=== PATIENT | male | born 1955 | race Caucasian/White ===

== ENCOUNTER → 2020-06-10 18:14 | Outpatient (CLI) | payer OTHER, SELFPAY ==
[2020-06-10 18:47] LABS: Alanine Aminotransferase 48 U/L (12-78); Albumin Level 4.5 g/dl (3.5-5.0); Albumin/Globulin Ratio 2.1 (1.1-1.8); Alkaline Phosphatase 55 U/L (38-126); Anion Gap 15.4 mEq/L (5-15); Aspartate Amino Transferase 31 U/L (17-59); Bilirubin,Total 0.3 mg/dl (0.2-1.3); Blood Urea Nitrogen 19 mg/dl (9-20); Calcium 9.9 mg/dl (8.4-10.2); Carbon Dioxide 25 mmol/L (22.0-30.0); Chloride 102 mmol/L (98-107); Estimated Glomerular Filt Rate 136 ml/min (>60); GFR (African American) 164 ML/MIN (>60); Globulin 2.1 g/dL (1.3-3.2); Glucose 175 mg/dl (74-100); Potassium 4.4 mmoL/L (3.5-5.1); Sodium 138 mmol/L (136-145); Total Protein,Serum 6.6 g/dl (6.3-8.2)
[2020-06-10 18:55] LABS: Hemoglobin A1C 7.8 % (4.0-6.0)
== END ==
PROVIDERS: Visit Provider Family Medicine
DX: E11.9 Type 2 diabetes mellitus without complications (principal); Z79.4 Long term (current) use of insulin
CPT/HCPCS: 80053; 83036

== ENCOUNTER → 2020-11-10 13:51 | Outpatient (CLI) | payer OTHER, SELFPAY ==
[2020-11-10 14:29] LABS: Alanine Aminotransferase 51 U/L (12-78); Albumin Level 4.4 g/dl (3.5-5.0); Albumin/Globulin Ratio 1.8 (1.1-1.8); Alkaline Phosphatase 53 U/L (38-126); Anion Gap 14.3 mEq/L (5-15); Aspartate Amino Transferase 43 U/L (17-59); Bilirubin,Total 0.4 mg/dl (0.2-1.3); Blood Urea Nitrogen 17 mg/dl (9-20); Calcium 9.6 mg/dl (8.4-10.2); Carbon Dioxide 23 mmol/L (22.0-30.0); Chloride 103 mmol/L (98-107); Chol/HDL Ratio 4.6 (1-3.5); Cholesterol 225 mg/dl (140-200); Estimated Glomerular Filt Rate 167 ml/min (>60); GFR (African American) 203 ML/MIN (>60); Globulin 2.5 g/dL (1.3-3.2); Glucose 163 mg/dl (74-100); HDL Cholesterol 49 mg/dl (40-60); Potassium 4.3 mmoL/L (3.5-5.1); Sodium 136 mmol/L (136-145); Total Protein,Serum 6.9 g/dl (6.3-8.2); Triglycerides 184 mg/dl (30-150); VLDL Cholesterol 37 mg/dL (0-40)
[2020-11-10 14:42] LABS: Creatinine,Urine Random 151 mg/dL (Not Estab.)
[2020-11-10 14:49] LABS: Basophils % 0.8 % (0.1-2.0); Eosinophils # 0.2 K/mm3 (0.0-0.4); Hematocrit 42.4 % (42.0-52.0); Lymphocytes # 1.1 K/mm3 (0.7-4.5); Lymphocytes % 20.1 % (10-50); Mean Corpuscular Hemoglobin 29.9 pg (27.0-31.2); Mean Corpuscular Volume 90.6 fl (80-94); Mean Platelet Volume 9.3 fl (7.4-10.4); Monocytes # 0.4 K/mm3 (0.1-1.0); Neutrophils # 3.7 K/mm3 (1.8-7.8); Neutrophils % 68.1 % (37.0-80.0); Platelet Count 162 K/mm3 (142-424); Red Blood Count 4.68 M/mm3 (4.60-6.20); Red Cell Distribution Width 14.7 % (11.5-17.5); T4 (Thyroxine) 9.3 ug/dl (5.53-11.0); White Blood Count 5.4 K/mm3 (4.8-10.8)
[2020-11-10 14:58] LABS: Microalbumin/Creatinine Ratio 22.5
[2020-11-10 15:02] LABS: Prostate Specific Ag Screen 0.4 ng/ml (0.0-4.0); Thyroid Stimulating Hormone 2.01 uIU/mL (0.465-4.68)
[2020-11-10 17:36] LABS: Hemoglobin A1C 8.6 % (4.0-6.0)
== END ==
PROVIDERS: Visit Provider Family Medicine
DX: E11.9 Type 2 diabetes mellitus without complications (principal); Z12.5 Encounter for screening for malignant neoplasm of prostate; Z79.4 Long term (current) use of insulin
CPT/HCPCS: 80053; 80061; 82043; 82570; 83036; 84436; 84443; 85025; G0103

== ENCOUNTER → 2020-11-20 09:34 | Outpatient (CLI) | payer OTHER, SELFPAY ==
--- NOTE | 2020-11-20 09:39 | CA_ITS ---
APPROVED REPORT Invoice Control Clerk: MERVIN Laterality: Bilateral Study Quality: Adequate, Due to body habitus. Indications: hx CVA rt sided impairment, DM, smoker, HTN, HLD, CAD-9 stents Risk Factors Hypertension: TIA/CVA History Hyperlipidemia Diabetes Smoking Doppler Spectral Velocity Analysis ECA (R) 305.80/42.80 cm/s ECA (L) 182.20/38.80 cm/s dICA (R) 128.10/28.20 cm/s dICA (L) 90.90/21.40 cm/s James (R) 137.10/37.20 cm/s James (L) 82.30/22.50 cm/s pICA (R) 134.50/44.80 cm/s pICA (L) 165.30/29.50 cm/s dCCA (R) 101.00/30.70 cm/s dCCA (L) 90.90/21.40 cm/s pCCA (R) 64.30/15.00 cm/s pCCA (L) 100.50/23.50 cm/s Vert (R) 61.00/0.00 cm/s Vert (L) 45.40/0.00 cm/s ICA/CCA 1.36 ICA/CCA 1.82 Findings Duplex evaluation demonstrates antegrade flow of the bilateral Vertebral Arteries. Duplex evaluation demonstrates moderate stenosis of the proximal right Internal Carotid Artery in the range of 20-49% <140 cm/sec. Duplex evaluation demonstrates moderate stenosis of the proximal left Internal Carotid Artery in the range of 50-69% =140 cm/sec. Conclusion Duplex evaluation demonstrates antegrade flow of the bilateral Vertebral Arteries. Duplex evaluation demonstrates moderate stenosis of the proximal right Internal Carotid Artery in the range of 20-49% <140 cm/sec. Duplex evaluation demonstrates moderate stenosis of the proximal left Internal Carotid Artery in the range of 50-69% =140 cm/sec. Electronically signed by : Prince Wilson MD 11/20/2020 15:56:48
== END ==
PROVIDERS: PCP Family Medicine; Visit Provider Family Medicine
DX: I73.9 Peripheral vascular disease, unspecified (principal); Z86.73 Personal history of transient ischemic attack (TIA), and cerebral infarction without residual deficits
CPT/HCPCS: 93880

== ENCOUNTER → 2021-02-05 14:05 | Outpatient (CLI) | payer OTHER, SELFPAY ==
[2021-02-05 14:25] LABS: Hemoglobin A1C 8.6 % (4.0-6.0)
[2021-02-05 14:29] LABS: Alanine Aminotransferase 44 U/L (12-78); Albumin Level 4.3 g/dl (3.5-5.0); Albumin/Globulin Ratio 2.3 (1.1-1.8); Alkaline Phosphatase 50 U/L (38-126); Aspartate Amino Transferase 33 U/L (17-59); Bilirubin,Total 0.6 mg/dl (0.2-1.3); Blood Urea Nitrogen 14 mg/dl (9-20); Calcium 8.9 mg/dl (8.4-10.2); Carbon Dioxide 25 mmol/L (22.0-30.0); Chloride 102 mmol/L (98-107); Chol/HDL Ratio 4.2 (1-3.5); Cholesterol 155 mg/dl (140-200); Estimated Glomerular Filt Rate 136 ml/min (>60); GFR (African American) 164 ML/MIN (>60); Globulin 1.9 g/dL (1.3-3.2); Glucose 178 mg/dl (74-100); HDL Cholesterol 37 mg/dl (40-60); Sodium 137 mmol/L (136-145); Total Protein,Serum 6.2 g/dl (6.3-8.2); Triglycerides 96 mg/dl (30-150); VLDL Cholesterol 19 mg/dL (0-40)
== END ==
PROVIDERS: Visit Provider Family Medicine
DX: E11.9 Type 2 diabetes mellitus without complications (principal); I10 Essential (primary) hypertension; Z79.4 Long term (current) use of insulin
CPT/HCPCS: 80053; 80061; 83036

== ENCOUNTER → 2021-04-02 14:03 | Outpatient (CLI) | payer OTHER, SELFPAY ==
[2021-04-02 14:11] LABS: Chloride 105 mmol/L (98-107); Potassium 5.2 mmoL/L (3.5-5.1); Sodium 139 mmol/L (136-145)
[2021-04-02 14:14] LABS: Alanine Aminotransferase 55 U/L (12-78); Albumin Level 4.3 g/dl (3.5-5.0); Alkaline Phosphatase 64 U/L (38-126); Anion Gap 17.2 mEq/L (5-15); Aspartate Amino Transferase 46 U/L (17-59); Bilirubin,Total 0.5 mg/dl (0.2-1.3); Blood Urea Nitrogen 22 mg/dl (9-20); Calcium 9.2 mg/dl (8.4-10.2); Carbon Dioxide 22 mmol/L (22.0-30.0); Estimated Glomerular Filt Rate 97 ml/min (>60); GFR (African American) 118 ML/MIN (>60); Globulin 2.1 g/dL (1.3-3.2); Glucose 336 mg/dl (74-100); Total Protein,Serum 6.4 g/dl (6.3-8.2)
[2021-04-02 14:49] LABS: Hemoglobin A1C 8.9 % (4.0-6.0)
== END ==
PROVIDERS: Visit Provider Family Medicine
DX: E11.51 Type 2 diabetes mellitus with diabetic peripheral angiopathy without gangrene (principal); Z79.4 Long term (current) use of insulin
CPT/HCPCS: 80053; 83036

== ENCOUNTER → 2021-05-12 18:54 | Outpatient (CLI) | payer OTHER, SELFPAY ==
[2021-05-12 20:06] LABS: Alanine Aminotransferase 35 U/L (12-78); Albumin/Globulin Ratio 1.9 (1.1-1.8); Alkaline Phosphatase 53 U/L (38-126); Anion Gap 16.5 mEq/L (5-15); Aspartate Amino Transferase 33 U/L (17-59); Bilirubin,Total 0.3 mg/dl (0.2-1.3); Blood Urea Nitrogen 15 mg/dl (9-20); Calcium 9.1 mg/dl (8.4-10.2); Carbon Dioxide 26 mmol/L (22.0-30.0); Chloride 100 mmol/L (98-107); Estimated Glomerular Filt Rate 167 ml/min (>60); GFR (African American) 202 ML/MIN (>60); Globulin 2.1 g/dL (1.3-3.2); Glucose 178 mg/dl (74-100); Potassium 4.5 mmoL/L (3.5-5.1); Sodium 138 mmol/L (136-145); Total Protein,Serum 6.1 g/dl (6.3-8.2)
[2021-05-12 21:06] LABS: Hemoglobin A1C 8.7 % (4.0-6.0)
== END ==
PROVIDERS: Visit Provider Family Medicine
DX: E11.51 Type 2 diabetes mellitus with diabetic peripheral angiopathy without gangrene (principal); Z79.4 Long term (current) use of insulin
CPT/HCPCS: 80053; 83036

== ENCOUNTER → 2021-07-10 15:02 | Outpatient (CLI) | payer MEDICARE, SELFPAY ==
[2021-07-10 15:46] LABS: Hemoglobin A1C 7.1 % (4.0-6.0)
== END ==
PROVIDERS: Visit Provider Family Medicine
DX: E11.9 Type 2 diabetes mellitus without complications (principal); Z79.84 Long term (current) use of oral hypoglycemic drugs
CPT/HCPCS: 83036

== ENCOUNTER → 2021-10-15 13:36 | Outpatient (CLI) | payer MEDICARE, SELFPAY ==
--- NOTE | 2021-10-15 13:36 | CT_ITS ---
FINAL REPORT TECHNIQUE: Thin section axial CT with IV contrast supplemented with multiplanar reconstruction under CT angiogram protocol. This study was performed with techniques to keep radiation doses as low as reasonably achievable (ALARA). Individualized dose reduction techniques using automated exposure control or adjustment of mA and/or kV according to the patient''s size were employed. NASCET criteria was utilized during interpretation. CLINICAL HISTORY: carotid stenosis weak rt side , leg weakness , hx stroke 2 years ago FINDINGS: There is motion artifact at the level of the base of the brain which decreases sensitivity of the exam. Aortic arch: Arch shows no significant narrowing. Great vessel origins are widely patent. Right carotid: There is mild plaque at the common carotid artery without significant stenosis. There is plaque at the right carotid bulb with less than 50% stenosis. There is mild stenosis at the distal right ICA. Left carotid: There is mild plaque at the left common carotid artery without significant stenosis. There is large plaque at the left carotid bulb with 60-70% stenosis. There is approximately 50-60% stenosis of the cavernous distal ICA. Vertebral: Right vertebral artery is dominant. Vertebral arteries are patent bilaterally. Note is made of a right thyroid nodule measuring 11 mm. IMPRESSION: 1. Mild stenosis at the right carotid bulb. 2. 60-70% stenosis at the left carotid bulb with 50-60% stenosis of the cavernous distal ICA. 3. Right thyroid nodule measuring 11 mm. Thyroid ultrasound is recommended for further evaluation. Reviewed, Interpreted and Dictated by Fantasma Wadsworth III, MD Transcribed by Delores Stoner Authenticated by Fantasma Wadsworth III, MD on 10/15/2021 04:16:22 PM [facility]
[2021-10-15 14:23] LABS: Blood Urea Nitrogen 17 mg/dl (9-20); Estimated Glomerular Filt Rate 135 ml/min (>60); GFR (African American) 164 ML/MIN (>60)
== END ==
PROVIDERS: PCP Family Medicine; Visit Provider Family Medicine
DX: I65.23 Occlusion and stenosis of bilateral carotid arteries (principal)
CPT/HCPCS: 36415; 70498; 82565; 84520; Q9967

== ENCOUNTER → 2022-04-06 18:23 | Outpatient (CLI) | payer MEDICARE, SELFPAY ==
[2022-04-06 15:40] LABS: Basophils # 0.1 K/mm3 (0-0.2); Basophils % 1.2 % (0.1-2.0); Eosinophils # 0.3 K/mm3 (0.0-0.4); Eosinophils % 5.2 % (0.1-12.0); Hematocrit 44.8 % (42.0-52.0); Lymphocytes % 16.9 % (10-50); Mean Corpuscular HGB Conc 31.1 g/dL (31.8-35.4); Mean Corpuscular Hemoglobin 28.9 pg (27.0-31.2); Mean Corpuscular Volume 92.9 fl (80-94); Mean Platelet Volume 10.1 fl (7.4-10.4); Monocytes # 0.4 K/mm3 (0.1-1.0); Monocytes % 6.9 % (1.7-9.3); Neutrophils # 4.1 K/mm3 (1.8-7.8); Neutrophils % 69.7 % (37.0-80.0); Platelet Count 168 K/mm3 (142-424); Red Blood Count 4.82 M/mm3 (4.60-6.20); White Blood Count 5.9 K/mm3 (4.8-10.8)
[2022-04-06 15:58] LABS: Chloride 104 mmol/L (98-107); Sodium 135 mmol/L (136-145)
[2022-04-06 16:00] LABS: Potassium 4.9 mmoL/L (3.5-5.1)
[2022-04-06 16:01] LABS: Alanine Aminotransferase 42 U/L (12-78); Alkaline Phosphatase 62 U/L (38-126); Anion Gap 11.9 mEq/L (5-15); Aspartate Amino Transferase 37 U/L (17-59); Bilirubin,Total 0.2 mg/dl (0.2-1.3); Blood Urea Nitrogen 19 mg/dl (9-20); Carbon Dioxide 24 mmol/L (22.0-30.0); Estimated Glomerular Filt Rate 167 ml/min (>60); GFR (African American) 202 ML/MIN (>60)
[2022-04-06 16:03] LABS: Albumin Level 4.1 g/dl (3.5-5.0); Albumin/Globulin Ratio 2.2 (1.1-1.8); Calcium 9.6 mg/dl (8.4-10.2); Globulin 1.9 g/dL (1.3-3.2); Glucose 271 mg/dl (74-100)
[2022-04-06 16:09] LABS: 25-OH Vitamin D, Total 56.1 ng/mL (30-100)
[2022-04-06 16:33] LABS: Thyroid Stimulating Hormone 2.19 uIU/mL (0.465-4.68)
[2022-04-06 16:58] LABS: Hemoglobin A1C 10.4 % (4.0-6.0)
== END ==
PROVIDERS: PCP Family Medicine; Visit Provider Family Medicine
DX: E11.9 Type 2 diabetes mellitus without complications (principal); E55.9 Vitamin D deficiency, unspecified; I65.29 Occlusion and stenosis of unspecified carotid artery; Z79.4 Long term (current) use of insulin
CPT/HCPCS: 80053; 82306; 83036; 84443; 85025

== ENCOUNTER → 2022-07-06 10:43 | Outpatient (CLI) | payer MEDICARE, SELFPAY ==
[2022-07-06 17:36] LABS: Chol/HDL Ratio 3.1 (1-3.5); Cholesterol 126 mg/dl (140-200); HDL Cholesterol 41 mg/dl (40-60); Triglycerides 88 mg/dl (30-150); VLDL Cholesterol 18 mg/dL (0-40)
[2022-07-06 17:47] LABS: Direct LDL Cholesterol 67.26 mg/dL (100-129)
[2022-07-06 18:27] LABS: Hemoglobin A1C 9.1 % (4.0-6.0)
== END ==
PROVIDERS: PCP Family Medicine; Visit Provider Family Medicine
DX: E11.51 Type 2 diabetes mellitus with diabetic peripheral angiopathy without gangrene (principal); Z79.4 Long term (current) use of insulin
CPT/HCPCS: 80061; 83036

== ENCOUNTER → 2023-07-04 08:21 | Outpatient (CLI) | payer MEDICARE, SELFPAY ==
[2023-07-04 19:25] LABS: Basophils % 0.5 % (0.1-2.0); Eosinophils # 0.2 K/mm3 (0.0-0.4); Eosinophils % 3.1 % (0.1-12.0); Hematocrit 40.9 % (42.0-52.0); Hemoglobin 13.9 g/dL (14.1-18.0); Lymphocytes % 17.8 % (10-50); Mean Corpuscular HGB Conc 33.9 g/dL (31.8-35.4); Mean Corpuscular Hemoglobin 29.8 pg (27.0-31.2); Mean Corpuscular Volume 87.7 fl (80-94); Mean Platelet Volume 10.2 fl (7.4-10.4); Monocytes # 0.4 K/mm3 (0.1-1.0); Monocytes % 6.5 % (1.7-9.3); Neutrophils # 4.1 K/mm3 (1.8-7.8); Neutrophils % 72.2 % (37.0-80.0); Platelet Count 156 K/mm3 (142-424); Red Blood Count 4.67 M/mm3 (4.60-6.20); Red Cell Distribution Width 14.7 % (11.5-17.5); White Blood Count 5.7 K/mm3 (4.8-10.8)
[2023-07-04 20:31] LABS: Alanine Aminotransferase 31 U/L (12-78); Alkaline Phosphatase 53 U/L (38-126); Anion Gap 13.6 mEq/L (5-15); Aspartate Amino Transferase 31 U/L (17-59); Bilirubin,Total 0.3 mg/dl (0.2-1.3); Blood Urea Nitrogen 14 mg/dl (9-20); Carbon Dioxide 24 mmol/L (22.0-30.0); Chloride 101 mmol/L (98-107); Chol/HDL Ratio 3.4 (1-3.5); Cholesterol 113 mg/dl (140-200); Estimated Glomerular Filt Rate 134 ml/min (>60); GFR (African American) 163 ML/MIN (>60); Glucose 220 mg/dl (74-100); HDL Cholesterol 33 mg/dl (40-60); Potassium 4.6 mmoL/L (3.5-5.1); Sodium 134 mmol/L (136-145); Triglycerides 86 mg/dl (30-150); VLDL Cholesterol 17 mg/dL (0-40)
[2023-07-04 20:41] LABS: Direct LDL Cholesterol 70.28 mg/dL (100-129)
[2023-07-04 21:01] LABS: Hemoglobin A1C 10.4 % (4.0-6.0)
[2023-07-04 21:12] LABS: Prostate Specific Ag Screen 0.4 ng/ml (0.0-4.0); Thyroid Stimulating Hormone 1.69 uIU/mL (0.465-4.68)
== END ==
PROVIDERS: PCP Family Medicine; Visit Provider Family Medicine
DX: Z86.73 Personal history of transient ischemic attack (TIA), and cerebral infarction without residual deficits; E11.51 Type 2 diabetes mellitus with diabetic peripheral angiopathy without gangrene; Z12.5 Encounter for screening for malignant neoplasm of prostate; I10 Essential (primary) hypertension; I65.23 Occlusion and stenosis of bilateral carotid arteries; Z79.4 Long term (current) use of insulin
CPT/HCPCS: 80053; 80061; 83036; 84443; 85025; G0103

== ENCOUNTER → 2023-08-24 23:25 | Outpatient (CLI) | payer MEDICARE, SELFPAY ==
[2023-08-24 18:56] LABS: Alanine Aminotransferase 31 U/L (12-78); Alkaline Phosphatase 48 U/L (38-126); Anion Gap 11.5 mEq/L (5-15); Aspartate Amino Transferase 32 U/L (17-59); Bilirubin,Total 0.3 mg/dl (0.2-1.3); Blood Urea Nitrogen 14 mg/dl (9-20); Calcium 8.8 mg/dl (8.4-10.2); Carbon Dioxide 24 mmol/L (22.0-30.0); Chloride 103 mmol/L (98-107); Estimated Glomerular Filt Rate 134 ml/min (>60); GFR (African American) 163 ML/MIN (>60); Glucose 173 mg/dl (74-100); Potassium 4.5 mmoL/L (3.5-5.1); Sodium 134 mmol/L (136-145)
[2023-08-24 19:12] LABS: Hemoglobin A1C 9.1 % (4.0-6.0)
== END ==
LOC: LAB.DROPOF 23:26
PROVIDERS: PCP Family Medicine; Visit Provider Nurse Practitioner
DX: E11.51 Type 2 diabetes mellitus with diabetic peripheral angiopathy without gangrene (principal); Z79.4 Long term (current) use of insulin
CPT/HCPCS: 80053; 83036

== ENCOUNTER 2024-01-12 10:14 | Outpatient (CLI) | payer MEDICARE, SELFPAY ==
[2024-01-11 18:38] LABS: Alanine Aminotransferase 36 U/L (12-78); Albumin Level 3.7 g/dl (3.5-5.0); Albumin/Globulin Ratio 1.9 (1.1-1.8); Alkaline Phosphatase 53 U/L (38-126); Anion Gap 13.7 mEq/L (5-15); Aspartate Amino Transferase 35 U/L (17-59); Bilirubin,Total 0.5 mg/dl (0.2-1.3); Blood Urea Nitrogen 12 mg/dl (9-20); Calcium 9.1 mg/dl (8.4-10.2); Carbon Dioxide 28 mmol/L (22.0-30.0); Chloride 104 mmol/L (98-107); Chol/HDL Ratio 3.3 (1-3.5); Cholesterol 140 mg/dl (140-200); Estimated Glomerular Filt Rate 134 ml/min (>60); GFR (African American) 163 ML/MIN (>60); Glucose 149 mg/dl (74-100); HDL Cholesterol 42 mg/dl (40-60); Potassium 4.7 mmoL/L (3.5-5.1); Sodium 141 mmol/L (136-145); Total Protein,Serum 5.7 g/dl (6.3-8.2); Triglycerides 122 mg/dl (30-150); VLDL Cholesterol 24 mg/dL (0-40)
[2024-01-11 18:48] LABS: Direct LDL Cholesterol 83.21 mg/dL (100-129)
== END 2024-01-12 23:59 | disposition home or self-care (01) ==
LOC: LAB.DROPOF 10:15
PROVIDERS: PCP Family Medicine; Visit Provider Family Medicine
DX: I10 Essential (primary) hypertension (principal); F17.290 Nicotine dependence, other tobacco product, uncomplicated
CPT/HCPCS: 80053; 80061